=== PATIENT | male | born 1995 | race Caucasian/White ===

== ENCOUNTER 2017-09-11 17:45 | Emergency (ER) | payer SELFPAY ==
[~2017-09-11] VITALS: Ht 185.4 cm; Wt 72.6 kg
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
[2017-09-11] MEDS ORDERED: NS(*) 0.9% 1000 ML BAG 1,000 ML IV ONE (17:55)
[2017-09-11] MEDS ORDERED: ONDANSETRON 4 MG/2 ML VIAL IVP ONE (17:55)
[2017-09-11 18:14] LABS: PLATELET COUNT, AUTOMATED 222 K/uL (150-450)
[2017-09-11] MEDS ORDERED: ONDA4TAB PO (19:23)
[2017-09-11] MEDS ORDERED: OMEP40CA48 PO (19:23)
[2017-09-11] MEDS ORDERED: ONDANSETRON 4 MG ODT TH SL ONE (19:25)
[2017-09-11] MEDS ORDERED: PANTOPRAZOLE SOD 40 MG TABEC PO ONE (19:25)
[2017-09-11 19:40] VITALS: BP 116/72
== END 2017-09-11 19:44 | disposition home or self-care (01) ==
LOC: ER 17:57
DX: K29.20 Alcoholic gastritis without bleeding (principal)
CPT/HCPCS: 80305; 80320; 80357; 80375; 81001; 82150; 83690; 85025; 87088; 96361; 96374; 99284; J2405; J7030; S0119; 82040; 82247; 82310; 82374; 82435; 82565; 82947; 84075; 84132; 84155; 84295; 84450; 84460; 84520